=== PATIENT | female | born 1945 | race Caucasian/White ===

== ENCOUNTER 2017-08-02 10:20 | Observation (INO) | payer OTHER, MEDICAID ==
[~2017-08-02] VITALS: Ht 157.5 cm; Wt 123.6 kg
[~2017-08-02 10:20] MED LIST: ACET325T40 PO; BCL80INH INH; RTATR IH
[2017-08-02] MEDS ORDERED: ACETAMINOPHEN 325 MG TAB PO ONE (11:00)
--- NOTE | 2017-08-02 11:00 | ERD ---
ER Documentation Chief Complaint Chief Complaint back and hip pain due to mechanical fall HPI This is a 72-year-old female with a history of COPD, hypertension, arrhythmia status post pacemaker, previous stroke and chronic back pain who is presenting with back and hip pain. The patient reports that she occasionally gets muscle spasms to her back. This happened this morning and she fell, landing on her hip. She was not able to get up on her own, but she was able to call an ambulance. The patient is able to move her hip minimally, but it is quite tender. She reports that her pain is mostly in her back, though. She does get muscle spasms and back pain every day, but it has not been this bad in a long time. She traditionally ambulates at home with a walker. She does not endorse any other injury. She did not fall on an outstretched hand. She has no trauma to the upper extremities. She did not hit her head. She has no head or neck pain. She did not lose consciousness. The patient has no weakness numbness or tingling to the face or extremities. Her sensation, strength and pulses are normal distal to the injury. The patient lives at home alone and does not have anyone who can help take care of her. She is a senior citizen on medical assistance. She states that she does not have any money to obtain any prescription medications at this time. She is concerned about going home and falling again, especially because there is not any one home to help her. The patient denies feeling sick recently. The patient denies fever or chills. The patient has had no headache or vision changes. The patient does not endorse neck or back pain. The patient denies lightheadedness or dizziness. The patient has had no chest pain or shortness of breath or trouble breathing. The patient denies nausea or vomiting. The patient denies abdominal pain or changes to bowel movements or urination. The patient has had no focal deficits. The patient has had no weakness or numbness or tingling to the face or extremities. ROS All systems reviewed and are negative except as per history of present illness. Medications Home Meds Active Scripts Acetaminophen (MAPAP) 325 Mg Tab, 650 MG PO Q6H Y for PAIN LEVEL 1-3 OR FEVER, # 1 TAB Prov:ARTI SIMON MD 08/30/15 Reported Medications Ipratropium Lincoln* (Atrovent*) 2.5 Ml Nebu, 2.5 ML IH Q6 Y for SHORTNESS OF BREATH 12/09/13 Beclomethasone Dip (Qvar 80) 1 Puff Inha, 2 PUFF INH BID, INH RINSE MOUTH AFTER EACH USE 12/09/13 Allergies Allergies: Coded Allergies: hydromorphone HCl (Verified Allergy, Intermediate, SEIZURE, 08/02/17) Penicillins (Verified Allergy, Mild, 08/02/17) acetaminophen (Verified Allergy, Mild, 08/02/17) albuterol (Verified Allergy, Mild, 08/02/17) aspirin (Verified Allergy, Mild, 08/02/17) atorvastatin (Verified Allergy, Mild, 08/02/17) caffeine (Verified Allergy, Mild, 08/02/17) ciprofloxacin (Verified Allergy, Mild, 08/02/17) clopidogrel (Verified Allergy, Mild, 08/02/17) codeine (Verified Allergy, Mild, 08/02/17) prednisone (Verified Allergy, Mild, 08/02/17) Uncoded Allergies: STATINS (Allergy, Intermediate, 12/09/13) SULFA (Allergy, Intermediate, 12/09/13) FLU SHOT (Allergy, Mild, 09/01/09) PNEUMO VACCINE (Allergy, Mild, 09/01/09) PMhx/Soc History of Surgery: Yes (C section, hysterectomy,pacemaker) Anesthesia Reaction: No Hx Neurological Disorder: Yes (stroke) Hx Respiratory Disorders: Yes (asthma) Hx Cardiac Disorders: Yes (HTN, pacemaker) Hx Psychiatric Problems: No Hx Miscellaneous Medical Probl: Yes (Metabolic syndrome, Asthma/COPD) Hx Alcohol Use: No Hx Substance Use: No Hx Tobacco Use: No Smoking Status: Never smoker FmHx Family History: diabetes Physical Exam Vitals Vital Signs Date Time Temp Pulse Resp B/P Pulse Ox O2 Delivery O2 Flow Rate FiO2 08/02/17 13:18 77 20 175/98 99 Room Air 08/02/17 10:25 97.5 83 18 157/82 98 Physical Exam Const: No apparent distress, well-developed, well-nourished Head: Normocephalic, Atraumatic Eyes: Normal Conjunctiva. Extraocular movements intact. Pupils equal, round and reactive to light ENT: Normal External Ears, Nose and Mouth. Neck: Full range of motion. No meningismus. Resp: Clear to auscultation bilaterally, No wheezes, rales or rhonchi Cardio: Regular rate and rhythm. No murmurs, rubs or gallops Abd: Morbidly obese with a BMI of 50. Soft, non tender. Normal bowel sounds Skin: No petechiae or rashes Back: Significant lumbar midline tenderness without step-offs or deformities. No CVA tenderness Ext: No cyanosis. Nonpitting bilateral lower extremity edema. No shortening of either leg. No rotation of either leg. Positive straight leg raise of the right leg to 30. Neur: Awake and alert, oriented 4. Cranial nerves intact. No facial droop. Normal strength, sensation and coordination. Psych: Normal Mood and Affect Results 24 hrs Current Medications Medications (Trade) Dose Ordered Sig/Amalia Route PRN Reason Start Time Stop Time Status Last Admin Dose Admin Acetaminophen (Tylenol Tab) 650 mg ONCE ONCE PO 08/02/17 11:00 08/02/17 11:01 DC 08/02/17 10:53 Ketorolac Tromethamine (Toradol) 15 mg ONCE STAT IM 08/02/17 11:26 08/02/17 11:29 DC 08/02/17 11:41 Diazepam (Valium) 5 mg ONCE ONCE IM 08/02/17 15:00 08/02/17 15:01 DC Procedures/MDM MDM The patient's presentation warrants further investigation. The patient presents with exacerbation of her back pain. I will evaluate for any signs of fracture or dislocation. I will treat the patient's pain. If there are no fractures or dislocations, we will check the patient's ambulatory status. IMAGING XR Lumbar FINDINGS: Spondylosis/degenerative enthesopathy is present throughout the imaged thoracic spine and the lumbar spine. Grade 1 spondylolisthesis of L4 on L5 is present of approximately 3 mm. No evidence for spondylolysis is suggested. Consider follow up with oblique views or additional imaging to further evaluate. Preservation of vertebral body heights are noted. The intervertebral discs demonstrate severe disc space height loss and vacuum phenomenon at the L4-5 and L5-S1 levels. Vascular calcifications are present of the aorta and the bilateral common iliac arteries. The posterior elements are intact and well aligned. The imaged portions the bilateral sacroiliac joints and the hips are normal. Mild osteitis pubis is present. IMPRESSION: 1. Degenerative spondylosis/enthesopathy of the imaged thoracic and lumbar spine. 2. Severe disc space height loss and vacuum phenomenon at the L4-5 and L5-S1 levels. 3. Grade 1 3 mm spondylolisthesis of L4 and L5 without evidence for spondylolysis 4. Mild atherosclerotic vascular disease Electronically viewed and signed by .Clau Chi MD, MD on 08/02/2017 12: 29 XR Hip FINDINGS: No acute fractures or dislocations are present. Normal mineralization and joint spaces are present. The imaged soft tissues are normal. The imaged portions of the bilateral sacroiliac joints and the pelvis are normal. IMPRESSION: No acute fractures or dislocations. Electronically viewed and signed by .Clau Chi MD, MD on 08/02/2017 12: 24 XR Pelvis FINDINGS: Bone density appears slightly decreased. There is no visible fracture. The hip joints are intact. The right femoral head and neck contour is smooth and contiguous. Degenerative changes of the sacroiliac joints and lower lumbar spine are observed. Soft tissues are unremarkable. IMPRESSION: No visible fracture. Electronically viewed and signed by .Arline Gonzalez MD, MD on 08/02/2017 12:26 TREATMENT/DISPOSITION We did treat the patient's pain with Tylenol and IM Toradol. When she was not moving, this did improve the pain significantly. We attempted to ambulate the patient, and her pain recurred and was significant. She had extreme difficulty walking with a walker, which is her baseline, and it was clear that the risk of falling was very high. The patient lives alone without any assistance at home. She also reports not being able to fill the prescriptions that she does not have the funding nor the capacity to get to the pharmacy. I am concerned of discharging the patient at this time, as I feel that it could be dangerous. The patient would benefit from evaluation in the hospital by physical therapy and Occupational Therapy. If her pain does not improve or she is not able to ambulate, she may benefit from a rehab facility over going home. At this time, I feel that the patient requires admission for further evaluation and management. The patient will be admitted to panel in accordance with the patient's insurance. The patient was accepted by Dr. Espino at 3 PM on August 02, 2017. The patient's blood pressure was elevated at greater than 120/80 while in the emergency department. The patient was otherwise stable with no evidence of hypertensive urgency or emergency or end organ damage. The patient does not require admission for blood pressure control. I have discussed with the patient the risks of hypertension. I have advised the patient to follow up with the primary care physician for outpatient monitoring and treatment for hypertension in 2-3 days. I have instructed the patient to return to the ER for any new or worsening symptoms including chest pain, shortness of breath, headache, blurred vision, confusion, nausea, vomiting or LOC. Disclaimer: Inadvertent spelling and grammatical errors are likely due to EHR/ dictation software use and do not reflect on the overall quality of patient care. Note that the electronic time recorded on this note does not necessarily reflect the actual time of the patient encounter. Departure Diagnosis: Primary Impression: Low back pain with sciatica Chronicity: unspecified Back pain laterality: midline Sciatica laterality: sciatica of right side Qualified Code: M54.41 - Midline low back pain with right-sided sciatica, unspecified chronicity Additional Impressions: Hip pain Laterality: right Qualified Code: M25.551 - Pain of right hip joint Decreased ambulation status Hypertension Hypertension type: unspecified Qualified Code: I10 - Hypertension, unspecified type Condition: PRABHAKAR Rajput MD Aug 02, 2017 11:00
[2017-08-02] MEDS ORDERED: KETOROLAC 15 MG INJ IM STA (11:26)
--- NOTE | 2017-08-02 12:25 | RADRPT ---
PROCEDURE: Right hip series CLINICAL INDICATION: Pain status post fall TECHNIQUE: AP and frog-leg lateral right hip COMPARISON: None available other than pelvis on 08/02/2017 FINDINGS: No acute fractures or dislocations are present. Normal mineralization and joint spaces are present. The imaged soft tissues are normal. The imaged portions of the bilateral sacroiliac joints and the p andrés are normal. IMPRESSION: 1. No acute fractures or dislocations. RPTAT: HDC .Clau Chi MD, Date Time Electronically viewed and signed by .Clau Chi MD, MD on 08/02/2017 12:24 .C/
--- NOTE | 2017-08-02 12:26 | RADRPT ---
PROCEDURE: XR Pelvis. CLINICAL INDICATION: Pain status post fall. TECHNIQUE: Pelvic x-ray, single AP view. COMPARISON: No prior studies are available for comparison. FINDINGS: Bone density appears slightly decreased. There is no visible fracture. The hip joints are intact. Th e right femoral head and neck contour is smooth and contiguous. Degenerative changes of the sacroili ac joints and lower lumbar spine are observed. Soft tissues are unremarkable. IMPRESSION: No visible fracture. RPTAT: HLST .Arline Gonzalez MD, Date Time Electronically viewed and signed by .Arline Gonzalez MD, on 08/02/2017 12:26 .T/
--- NOTE | 2017-08-02 12:29 | RADRPT ---
PROCEDURE: Lumbar spine series CLINICAL INDICATION: Back and hip pain TECHNIQUE: AP lateral and cone lateral views COMPARISON: Lumbar spine series 11/19/2013 FINDINGS: Spondylosis/degenerative enthesopathy is present throughout the imaged thoracic spine and the lumbar spine. Grade 1 spondylolisthesis of L4 on L5 is present of approximately 3 mm. No evidence for spon dylolysis is suggested. Consider follow up with oblique views or additional imaging to further evalu ate. Preservation of vertebral body heights are noted. The intervertebral discs demonstrate severe d isc space height loss and vacuum phenomenon at the L4-5 and L5-S1 levels. Vascular calcifications ar e present of the aorta and the bilateral common iliac arteries. The posterior elements are intact an d well aligned. The imaged portions the bilateral sacroiliac joints and the hips are normal. Mild os teitis pubis is present. IMPRESSION: 1. Degenerative spondylosis/enthesopathy of the imaged thoracic and lumbar spine. 2. Severe disc space height loss and vacuum phenomenon at the L4-5 and L5-S1 levels. 3. Grade 1 3 mm spondylolisthesis of L4 and L5 without evidence for spondylolysis 4. Mild atherosclerotic vascular disease RPTAT: HDC .Clau Chi MD, Date Time Electronically viewed and signed by .Clau Chi MD, on 08/02/2017 12:29 .C/
[2017-08-02] MEDS ORDERED: DIAZEPAM 5 MG/ML SYG IM ONE (15:00)
[2017-08-02] MEDS ORDERED: ACETAMINOPHEN 325 MG TAB PO PRN ×2 (15:30→20:00)
[2017-08-02] MEDS ORDERED: ONDANSETRON 4 MG INJ IV PRN (15:30)
[2017-08-02] MEDS ORDERED: DOCUSATE SODIUM 100 MG CAP PO PRN (16:00)
[2017-08-02] MEDS ORDERED: BISACODYL 10 MG SUPP PR PRN (16:00)
[2017-08-02] MEDS ORDERED: MAGNESIUM HYDROXIDE 30ML CUP PO PRN (16:00)
[2017-08-02] MEDS ORDERED: NACL 0.9% 3 ML SYG IV SCH (16:00)
--- NOTE | 2017-08-02 17:17 | HP ---
Date/Time of Note Date/Time of Note DATE: 08/02/17 TIME: 17:07 Assessment/Plan VTE Prophylaxis VTE Prophylaxis Intervention: SCD's Assessment/Plan Chief Complaint/Hosp Course Assessment and plan 1. Intractable back pain. Continue with analgesics. Will get pain management physician to follow. Will also get physical therapy considering patient's difficulty with ambulation. 2. Deconditioning. Will get physical therapist to follow. 3. Diabetes. Follow-up on A1c. Continue insulin regimen for now. 4. Hypertension. Will start on antihypertensive medications and adjust as needed 5. Obesity. Weight reduction was advised. 6. History of dyslipidemia. Follow-up in fasting lipid panel. 7.hx of cva. will place on antiplatelet therapy Admission process time is greater than 40 minutes Discussed plan of care with Dr. Espino Problems: HPI/ROS Admit Date/Time Admit Date/Time Hx of Present Illness This is a 72-year-old female with history of CVA, deconditioning, hypertension, this lipidemia, diabetes, morbid obesity, ADALBERTO, asthma, spinal stenosis, reported possible pelvic tumor, pacemaker, sick sinus syndrome, valvular heart disease with moderate aortic stenosis, left carotid artery stenosis status post reported endarterectomy who was brought to [facility] due to reports of recent fall. Patient reported that about 6 days prior to this admission should be hearing of a pack a water to her apartment. After then she started explains back spasms. She reportedly also has a history of sciatica. She reports that her spasms got worse and this morning when she woke up she tries to ambulate her spasms got worse that she fell on her right hip. She denies any loss of consciousness or hitting her head at that time. She reports merely landing on her right hip. She reports that after that she was unable to relate. She was brought by ambulance to [facility] due to the aformentiond issues. Upon further examination she did have further imaging of her lumbar spine which showed degenerative spondylosis and severe disc space height phenomenon at L4-L5 and L5-S1. There is also seen grade 1-3 mm spondylolisthesis of L4 and L5 without evidence of spondylosis. Hip x-ray was negative for any acute fractures and pelvic x-ray was also negative for any visible fractures. CBC and BMP are still pending at this time. On arrival patient was noted to be hypertensive with blood pressure as high as 175/90. Denies any chest pain shortness of breath. No reports of sick contacts of nausea vomiting. She does have +5 strength in bilateral upper and lower extremities but does have pain with ambulation reportedly. Pulses palpable +2 although she is noted with bilateral lower extremity edema. No other motor or neurological deficits seen at this time. We will evaluate her for the aformentiond issues. ROS 12 point review of systems obtained and entirely negative except that mentioned in the history of present illness PMH/Family/Social Past Medical History CVA, deconditioning, hypertension, this lipidemia, diabetes, morbid obesity, ADALBERTO, asthma, spinal stenosis, reported possible pelvic tumor, pacemaker, sick sinus syndrome, valvular heart disease with moderate aortic stenosis, carotid artery stenosis status post reported endarterectomy, Family History Significant Family History: no pertinent family hx Social History Alcohol Use: none Smoking Status: Never smoker Drug Use: none Exam/Review of Systems Vital Signs Vitals Vital Signs Date Time Temp Pulse Resp B/P Pulse Ox O2 Delivery O2 Flow Rate FiO2 08/02/17 13:18 77 20 175/98 99 Room Air 08/02/17 10:25 97.5 Exam Constitutional: alert, oriented, other (Obese) Psych: nl mood/affect Head: atraumatic, normocephalic Eyes: nl conjunctiva Neck: non-tender, supple Respiratory: clear to auscultation, normal air movement Cardiovascular: other (Pacemaker in place. Regular rate) Gastrointestinal: nl liver, spleen, soft Musculoskeletal: nl extremities to inspection Extremities: normal pulses Neurological: PLUMBER APPRENTICE II-XII intact, nl mental status, nl speech Medications Medications Current Medications Miscellaneous Information 2 puff BID INH ; Start 08/02/17 at 21:00; Status UNV Docusate Sodium (Colace) 100 mg Q12H PRN PO CONSTIPATION; Start 08/02/17 at 16 :00 Magnesium Hydroxide (Milk Of Mag) 30 ml DAILY PRN PO CONSTIPATION; Start 08/02 at 16:00 Bisacodyl (Dulcolax Supp) 10 mg DAILY PRN VT CONSTIPATION; Start 08/02/17 at 16:00 Pantoprazole (Protonix Tab) 40 mg DAILY@06 PO ; Start 08/03/17 at 06:00 ROSALBA MONTOYA Aug 02, 2017 17:17
[2017-08-02 17:20] VITALS: TEMP 97.5
[2017-08-02] MEDS ORDERED: GLUCAGON 1 MG INJ IM PRN (17:30)
[2017-08-02] MEDS ORDERED: hydrALAzine 20 MG INJ IV PRN (17:30)
[2017-08-02] MEDS ORDERED: DEXTROSE 50% 50 ML SYRINGE IV PRN ×2 (17:30)
[2017-08-02] MEDS ORDERED: GLUCOSE GEL 15 GRAM TUBE PO PRN ×2 (17:30)
[2017-08-02] MEDS ORDERED: GLUCOSE GEL 15 GRAM TUBE BUCCAL PRN (17:30)
[2017-08-02 17:41] LABS: BASOPHIL # 0.1 10^3/ul (0.0-0.1); BASOPHILS % 0.5 % (0.0-2.0); EOSINOPHILS # 0.1 10^3/ul (0.0-0.5); EOSINOPHILS % 1.3 % (0.0-7.0); HEMATOCRIT 40.5 % (37.0-47.0); HEMOGLOBIN 13.4 g/dl (12.0-16.0); LYMPHOCYTES # 2.3 10^3/ul (0.8-2.9); LYMPHOCYTES % 24.7 % (15.0-51.0); MEAN CORPUSCULAR HGB CONC 33.1 g/dl (32.0-37.0); MEAN CORPUSCULAR VOLUME 84.7 fl (82.0-101.0); MEAN PLATELET VOLUME 10.3 fl (7.4-10.4); MONOCYTE # 0.4 10^3/ul (0.3-0.9); MONOCYTES % 4.6 % (0.0-11.0); NEUTROPHIL # 6.3 10^3/ul (1.6-7.5); NEUTROPHILS % 68.5 % (39.0-77.0); PLATELET COUNT 222 10^3/UL (140-415); RED BLOOD COUNT 4.78 10^6/ul (4.20-5.40); RED CELL DISTRIBUTION WIDTH 13.1 % (11.5-14.5); WHITE BLOOD COUNT 9.3 10^3/ul (4.8-10.8)
[2017-08-02 17:46] LABS: ALBUMIN 3.9 g/dl (3.3-4.9); ALBUMIN/GLOBULIN RATIO 1.18; BILIRUBIN,INDIRECT 0.5 mg/dl (0-1.1); BILIRUBIN,TOTAL 0.5 mg/dl (0.2-1.3); CREATININE 0.59 mg/dl (0.44-1.00); POTASSIUM 4.2 mmol/L (3.5-5.1); TOTAL PROTEIN 7.2 g/dl (6.1-8.1)
[2017-08-02 18:13] VITALS: BP 139/71; RESP 18
[2017-08-02] MEDS ORDERED: ASPI81TA3 PO (18:30)
[2017-08-02 18:33] VITALS: Ht 157.5 cm; Wt 123.6 kg
[2017-08-02 20:00] VITALS: BP 196/93; PULSE 76; RESP 19
[2017-08-02] MEDS: KETOROLAC 30 MG INJ IV PRN (20:37)
[2017-08-02] MEDS: INSULIN ASPART [NOVOLOG] 3 ML PEN SC SCH (21:00)
[2017-08-02] MEDS: AMLODIPINE 5 MG TAB PO SCH (21:00)
[2017-08-02 21:50] VITALS: BP 177/76; PULSE 79
[2017-08-02] MEDS: MOMETASONE 0.24 GM INHALER INH SCH (22:30)
[2017-08-03] MEDS ORDERED: ACCU-CHEK XX SCH (02:00)
[2017-08-03 02:36] VITALS: BP 167/74; RESP 18
[2017-08-03] MEDS: KETOROLAC 30 MG INJ IV PRN ×2 (04:08→11:40)
[2017-08-03 05:50] LABS: ALBUMIN 3.4 g/dl (3.3-4.9); ALBUMIN/GLOBULIN RATIO 1.03; BILIRUBIN,INDIRECT 0.6 mg/dl (0-1.1); BILIRUBIN,TOTAL 0.6 mg/dl (0.2-1.3); CALCIUM 9.2 mg/dl (8.4-10.2); CHOL/HDL RATIO 4.9 RATIO; CREATININE 0.71 mg/dl (0.44-1.00); MAGNESIUM 1.6 mg/dl (1.7-2.5); PHOSPHORUS 3.2 mg/dl (2.5-4.9); POTASSIUM 4.3 mmol/L (3.5-5.1); TOTAL PROTEIN 6.7 g/dl (6.1-8.1)
[2017-08-03 05:59] LABS: T3 UPTAKE 35.3 % (23.5-40.5)
[2017-08-03] MEDS ORDERED: PANTOPRAZOLE (EC) 40 MG TAB PO SCH (06:00)
[2017-08-03 07:48] LABS: ADD UMIC NO; UR ASCORBIC ACID NEGATIVE (NEGATIVE); UR BILIRUBIN (Dip) NEGATIVE (NEGATIVE); UR BLOOD (Dip) NEGATIVE (NEGATIVE); UR CLARITY CLEAR (CLEAR); UR COLOR STRAW (YELLOW); UR GLUCOSE (Dip) 1+ mg/dL (NEGATIVE); UR KETONES (Dip) NEGATIVE (NEGATIVE); UR LEUKOCYTE ESTERASE (Dip) NEGATIVE Leu/ul (NEGATIVE); UR NITRITE (Dip) NEGATIVE (NEGATIVE); UR SPECIFIC GRAVITY (Dip) 1.012 (1.003-1.030); UR TOTAL PROTEIN (Dip) NEGATIVE (NEGATIVE); UR UROBILINOGEN (Dip) NEGATIVE (NEGATIVE)
[2017-08-03] MEDS: INSULIN ASPART [NOVOLOG] 3 ML PEN SC SCH ×4 (07:50→11:40)
[2017-08-03 08:38] VITALS: BP 142/78; RESP 18
[2017-08-03] MEDS: AMLODIPINE 5 MG TAB PO SCH (09:00)
[2017-08-03] MEDS: MOMETASONE 0.24 GM INHALER INH SCH (09:00)
[2017-08-03] MEDS ORDERED: INSULIN ASPART [NOVOLOG] 3 ML PEN SC SCH (11:40)
[2017-08-03] MEDS ORDERED: FENOFIBRATE 48 MG TAB PO SCH (12:00)
[2017-08-03] MEDS ORDERED: AMLO-145 PO (12:20)
[2017-08-03] MEDS ORDERED: FENO48TA4 PO (12:20)
[2017-08-03] MEDS ORDERED: PANT40TA4 PO (12:20)
[2017-08-03] MEDS ORDERED: METF500T4 PO (12:20)
[2017-08-03] MEDS ORDERED: METH500T PO (12:20)
[2017-08-03] MEDS ORDERED: SITA25TA3 PO (12:20)
[2017-08-03] MEDS ORDERED: OMEG-135 PO (12:20)
--- NOTE | 2017-08-03 12:24 | PDOCDIS ---
Discharge Instructions DIAGNOSIS Discharge Diagnosis 1. Intractable back pain. 2. Deconditioning. 3. Diabetes. 4. Hypertension. 5. Obesity. 6. History of dyslipidemia. 7.hx of cva. CONDITION Patient Condition: Stable HOME CARE INSTRUCTIONS: Diet Instructions: Low Fat /Cholesterol (1800 YA)Special Diet: 1800 CALYour diet recommendation is: CARBOHYDRATE CONTROLLED ACTIVITY: Activity Restrictions: Slowly Increase Activity Rest between Activity Avoid heavy lifting Do not Drive Avoid Heavy Housework Bathing Restrictions: Shower FOLLOW UP/APPOINTMENTS Follow-up Plan 1. Follow up with your primary care provider in one week 2. Follow up with your consumer educator in one week ROSALBA MONTOYA Aug 03, 2017 12:24
[2017-08-03] MEDS ORDERED: INSULIN GLARGINE [LANtus] 3 ML PEN SC SCH (20:00)
== END 2017-08-03 15:04 | disposition home health service (06) ==
LOC: E/R 10:20 → MS1 15:04
PROVIDERS: ADMIT Hospitalist; ATTEND Hospitalist
DX: M54.41 Lumbago with sciatica, right side (principal); M25.551 Pain in right hip; I10 Essential (primary) hypertension; E11.9 Type 2 diabetes mellitus without complications; J44.9 Chronic obstructive pulmonary disease, unspecified; J45.909 Unspecified asthma, uncomplicated; E78.5 Hyperlipidemia, unspecified; G47.33 Obstructive sleep apnea (adult) (pediatric); E66.01 Morbid (severe) obesity due to excess calories; Z68.42 Body mass index [BMI] 45.0-49.9, adult; Z95.0 Presence of cardiac pacemaker; Z86.73 Personal history of transient ischemic attack (TIA), and cerebral infarction without residual deficits; Z88.6 Allergy status to analgesic agent; Z88.1 Allergy status to other antibiotic agents; Z88.5 Allergy status to narcotic agent; Z88.0 Allergy status to penicillin; Z88.2 Allergy status to sulfonamides; Z88.8 Allergy status to other drugs, medicaments and biological substances; W19.XXXA Unspecified fall, initial encounter; Y93.9 Activity, unspecified; Y99.9 Unspecified external cause status; Y92.9 Unspecified place or not applicable
CPT/HCPCS: 72100; 72170; 73510; 80053; 80061; 81003; 82962; 83036; 83735; 84100; 84436; 84443; 84479; 85025; 96372; 97162; 99285; G0378; J1885; J3360; J0360; J1815

== ENCOUNTER 2019-02-24 17:00 | Emergency (ER) | payer OTHER, MEDICAID ==
[~2019-02-24] VITALS: Ht 157.5 cm; Wt 120.0 kg
[~2019-02-24 17:00] MED LIST changes: +AMLO-145 PO; +ASPI-903 PO; +FENO48TA4 PO; +METF500T24 PO; +METH500T PO; +OMEG-135 PO; +PANT40TA4 PO; +SITA25TA3 PO
[2019-02-24 17:09] VITALS: Ht 157.5 cm; Wt 120.0 kg
[2019-02-24] MEDS ORDERED: LIDOCAINE 1% (MDV) 20 ML INJ SC ONE (17:30)
[2019-02-24] MEDS ORDERED: DIPHTH/TET/ACEL PERTUSS (ADULT) 0.5 ML VIAL IM* ONE (17:30)
--- NOTE | 2019-02-24 18:45 | ERD ---
ER Documentation Chief Complaint Chief Complaint r foot injury after a mirror fell on it HPI History of Present Illness: 71-year-old female who reports a past medical history of diabetes, hypertension, TIA coming in today with complaint of right foot injury secondary to the mirror falling on it within 1 to 2 hours prior to arrival. Patient reports that laceration is present. Patient denies any other associated symptoms At home pharmacological/nonpharmacological treatment for symptoms: Denies Denies social concerns; Denies recent foreign travel ROS All systems reviewed and are negative except as per history of present illness. Medications Home Meds Active Scripts Clindamycin Hcl* (Clindamycin Hcl*) 300 Mg Capsule, 300 MG PO TID for laceration infection preventio for 7 Days, CAP Prov:CUAUHTEMOC KAMARA NP 02/24/19 [place]-3 Fatty Acids/Fish Oil (Fish Oil 1,000 mg Capsule) 1 Each Capsule, 1 EACH PO DAILY, #40 CAP Prov:ROSALBA MONTOYA NP 08/03/17 Methocarbamol* (Robaxin*) 500 Mg Tab, 500 MG PO Q6, #40 TAB Prov:ROSALBA MONTOYA NP 08/03/17 Sitagliptin* (Januvia*) 25 Mg Tablet, 25 MG PO DAILY, #30 TAB Prov:ROSALBA MONTOYA NP 08/03/17 Metformin Hcl* (Metformin Hcl*) 500 Mg Tablet, 500 MG PO WITH BREAKFAST DINNE, #60 TAB Prov:ROSALBA MONTOYA NP 08/03/17 Pantoprazole* (Pantoprazole*) 40 Mg Tablet.dr, 40 MG PO DAILY@06, #30 Prov:ROSALBA MONTOYA NP 08/03/17 Fenofibrate Nanocrystallized* (Fenofibrate*) 48 Mg Tablet, 48 MG PO DAILY, #30 TAB Prov:ROSALBA MONTOYA NP 08/03/17 Amlodipine Besylate* (Amlodipine Besylate*) 5 Mg Tablet, 5 MG PO BID, #60 TAB Prov:ROSALBA MONTOYA NP 08/03/17 Acetaminophen (MAPAP) 325 Mg Tab, 650 MG PO Q6H PRN for PAIN LEVEL 1-3 OR FEVER, #1 TAB Prov:ARTI SIMON MD 08/30/15 Reported Medications Aspirin* (Aspirin* Chew) 81 Mg Tab.chew, 81 MG PO DAILY, TAB.CHEW 08/02/17 Ipratropium [place]* (Atrovent*) 2.5 Ml Nebu, 2.5 ML IH Q6 PRN for SHORTNESS OF BREATH 12/09/13 Beclomethasone Dip (Qvar 80) 1 Puff Inha, 2 PUFF INH BID, INH RINSE MOUTH AFTER EACH USE 12/09/13 Allergies Allergies: Coded Allergies: hydromorphone HCl (Verified Allergy, Intermediate, SEIZURE, 08/02/17) Penicillins (Verified Allergy, Mild, 08/02/17) acetaminophen (Verified Allergy, Mild, 08/02/17) albuterol (Verified Allergy, Mild, 08/02/17) aspirin (Verified Allergy, Mild, 08/02/17) atorvastatin (Verified Allergy, Mild, 08/02/17) caffeine (Verified Allergy, Mild, 08/02/17) ciprofloxacin (Verified Allergy, Mild, 08/02/17) clopidogrel (Verified Allergy, Mild, 08/02/17) codeine (Verified Allergy, Mild, 08/02/17) prednisone (Verified Allergy, Mild, 08/02/17) Uncoded Allergies: STATINS (Allergy, Intermediate, 12/09/13) SULFA (Allergy, Intermediate, 12/09/13) FLU SHOT (Allergy, Mild, 09/01/09) PNEUMO VACCINE (Allergy, Mild, 09/01/09) PMhx/Soc History of Surgery: Yes Anesthesia Reaction: No Hx Neurological Disorder: No Hx Respiratory Disorders: Yes Hx Cardiac Disorders: Yes Hx Psychiatric Problems: No Hx Miscellaneous Medical Probl: Yes (See EMR for detail. ) Hx Alcohol Use: No Hx Substance Use: No Hx Tobacco Use: No Smoking Status: Never smoker FmHx Family History: coronary disease; No diabetes Physical Exam Vitals Vital Signs Date Temp Pulse Resp B/P (MAP) Pulse Ox O2 O2 Flow FiO2 Time Delivery Rate 02/24/19 98.0 82 16 154/72 98 Room Air 20:50 (99) 02/24/19 98.3 90 16 160/76 98 17:09 (104) Physical Exam Const: No acute distress, afebrile Head: Atraumatic Eyes: Normal Conjunctiva ENT: Normal External Ears, Nose and Mouth. Neck: Full range of motion. No meningismus. Resp: Clear to auscultation bilaterally Cardio: Regular rate and rhythm, no murmurs Abd: Soft, non tender, non distended. No guarding, no masses, no rigidity Skin: No petechiae or rashes; 2 laceration noted to right foot (1 laceration noted to the great toe, second laceration noted to dorsal aspect of foot), tenderness to palpation, bleeding controlled Back: No midline or flank tenderness Ext: No cyanosis, or edema Neur: Awake and alert x3, speaking in clear sentences, no focal deficits or facial asymmetry Psych: Normal Mood and Affect Results 24 hrs Current Medications Medications Dose Sig/Amalia Start Time Status Last (Trade) Ordered Route PRN Stop Time Admin Dose Reason Admin Diphtheria/ 0.5 ml ONCE ONCE 02/24/19 DC 02/24/19 Tetanus/Acell IM* 17:30 17:40 Pertussis 02/24/19 17:31 (Adacel) Lidocaine 20 ml ONCE ONCE 02/24/19 DC (Xylocaine SC 17:30 1% (Mdv) 20 02/24/19 17:31 ml) Procedures/MDM ED course includes a thorough examination and history. ED course includes laceration repair Medications: Tdap Imaging: Right foot x-ray Labs: Low suspicion for life-threatening medical emergency. Low suspicion for infectious process that requires hospitalization Otherwise healthy patient presenting with constellation of symptoms likely r epresenting history of diabetes, foot laceration, foot injury as characterized by history, physical exam findings, imaging findings. X-ray results showing: IMPRESSION: 1. No visible acute traumatic abnormality of the right foot. 2. Plantar calcaneal spur. RPTAT:AAJJ Physician Morena Date Time Electronically viewed and signed by Physician Morena on 02/24/2019 19:35 #1 Laceration Repair by me: Anesthesia: 1% lidocaine locally Location: Right foot; great toe Tendon/Joint/Nerves: No injury Foreign body: None detected after copious irrigation and exploration; 500Ml Technique: Simple Interrupted Sutures using Prolene, 5-0, 4 sutures Complexity: No subcutaneous sutures/mucosal repair/edge excision Post Closure Length: 3 cm #2 Laceration Repair by me: Anesthesia: 1% lidocaine locally Location: Right foot; in between great toe and second toe and extending to dorsal aspect of foot to third toe Tendon/Joint/Nerves: No injury Foreign body: None detected after copious irrigation and exploration; 500Ml Technique: Simple Interrupted Sutures using Prolene, 5-0, 5 sutures Complexity: No subcutaneous sutures/mucosal repair/edge excision Post Closure Length: 3.5 cm Patient's bleeding was easily controlled in the department and there is no indication of anemia. No evidence of compartment syndrome, neurologic injury, vascular injury, open joint, tendon laceration, or foreign body. Patient is appropriate for outpatient follow up. 48 hour wound check. Scar minimization instructions given. Patient reassessment: Patient hemodynamically stable. No respiratory distress, otherwise relatively well appearing and nontoxic. Disposition given. Patient educated on diagnoses, prescriptions, follow-up care, return precautions. Strict return precautions given for worsening condition; questions answered discharge. Disposition for discharge with followup in 2 days with PCP/clinic. Departure Diagnosis: Primary Impression: Injury of foot, right Encounter type: initial encounter Qualified Codes: S99.921A - Unspecified injury of right foot, initial encounter Additional Impressions: History of diabetes mellitus Laceration of right foot Encounter type: initial encounter Qualified Codes: S91.311A - Laceration without foreign body, right foot, initial encounter Laceration of right great toe Encounter type: initial encounter Damage to nail status: without damage Foreign body presence: without foreign body Qualified Codes: S91.111A - Laceration without foreign body of right great toe without damage to nail, initial encounter Condition: Stable CUAUHTEMOC KAMARA NP Feb 24, 2019 18:45
[2019-02-24] MEDS ORDERED: CLIN300C10 PO (20:15)
[2019-02-24 20:50] VITALS: BP 154/72; PULSE 82; RESP 16
== END 2019-02-24 20:50 | disposition home or self-care (01) ==
LOC: FTE 17:00
DX: S91.111A Laceration without foreign body of right great toe without damage to nail, initial encounter (principal); S91.114A Laceration without foreign body of right lesser toe(s) without damage to nail, initial encounter; I10 Essential (primary) hypertension; E11.9 Type 2 diabetes mellitus without complications; W20.8XXA Other cause of strike by thrown, projected or falling object, initial encounter; Y92.9 Unspecified place or not applicable; Z23 Encounter for immunization; Z79.82 Long term (current) use of aspirin; Z79.84 Long term (current) use of oral hypoglycemic drugs
CPT/HCPCS: 73630; 90471; 90715

== ENCOUNTER 2019-02-27 11:54 | Emergency (ER) | payer OTHER ==
[~2019-02-27] VITALS: Ht 157.5 cm; Wt 120.5 kg
[~2019-02-27 11:54] MED LIST changes: +CLIN300C10 PO
[2019-02-27 12:06] VITALS: BP 175/88; PULSE 82; RESP 18; Ht 157.5 cm; Wt 120.5 kg
--- NOTE | 2019-02-27 14:07 | ERD ---
ER Documentation Chief Complaint Chief Complaint wound check & dressing change lac repair wednesday HPI 74-year-old female presenting for wound check of the right foot. Patient had glassful on her right foot 2 days ago and had laceration repaired with stitches. She denies any numbness or tingling. Denies other medical problems. NKDA DA. Surgical history denies. Social history denies ROS All systems reviewed and are negative except as per history of present illness. Medications Home Meds Active Scripts Clindamycin Hcl* (Clindamycin Hcl*) 300 Mg Capsule, 300 MG PO TID for laceration infection preventio for 7 Days, CAP Prov:CUAUHTEMOC KAMARA NP 02/24/19 [place]-3 Fatty Acids/Fish Oil (Fish Oil 1,000 mg Capsule) 1 Each Capsule, 1 EACH PO DAILY, #40 CAP Prov:ROSALBA MONTOYA NP 08/03/17 Methocarbamol* (Robaxin*) 500 Mg Tab, 500 MG PO Q6, #40 TAB Prov:ROSALBA MONTOYA NP 08/03/17 Sitagliptin* (Januvia*) 25 Mg Tablet, 25 MG PO DAILY, #30 TAB Prov:ROSALBA MONTOAY NP 08/03/17 Metformin Hcl* (Metformin Hcl*) 500 Mg Tablet, 500 MG PO WITH BREAKFAST DINNE, #60 TAB Prov:ROSALBA MONTOYA NP 08/03/17 Pantoprazole* (Pantoprazole*) 40 Mg Tablet.dr, 40 MG PO DAILY@06, #30 Prov:ROSALBA MONTOYA NP 08/03/17 Fenofibrate Nanocrystallized* (Fenofibrate*) 48 Mg Tablet, 48 MG PO DAILY, #30 TAB Prov:ROSALBA MONTOYA NP 08/03/17 Amlodipine Besylate* (Amlodipine Besylate*) 5 Mg Tablet, 5 MG PO BID, #60 TAB Prov:ROSALBA MONTOYA NP 08/03/17 Acetaminophen (MAPAP) 325 Mg Tab, 650 MG PO Q6H PRN for PAIN LEVEL 1-3 OR FEVER, #1 TAB Prov:ARTI SIMON MD 08/30/15 Reported Medications Aspirin* (Aspirin* Chew) 81 Mg Tab.chew, 81 MG PO DAILY, TAB.CHEW 08/02/17 Ipratropium [place]* (Atrovent*) 2.5 Ml Nebu, 2.5 ML IH Q6 PRN for SHORTNESS OF BREATH 12/09/13 Beclomethasone Dip (Qvar 80) 1 Puff Inha, 2 PUFF INH BID, INH RINSE MOUTH AFTER EACH USE 12/09/13 Allergies Allergies: Coded Allergies: hydromorphone HCl (Verified Allergy, Intermediate, SEIZURE, 02/27/19) Penicillins (Verified Allergy, Mild, 02/27/19) acetaminophen (Verified Allergy, Mild, 02/27/19) albuterol (Verified Allergy, Mild, 02/27/19) aspirin (Verified Allergy, Mild, 02/27/19) atorvastatin (Verified Allergy, Mild, 02/27/19) caffeine (Verified Allergy, Mild, 02/27/19) ciprofloxacin (Verified Allergy, Mild, 02/27/19) clopidogrel (Verified Allergy, Mild, 02/27/19) codeine (Verified Allergy, Mild, 02/27/19) prednisone (Verified Allergy, Mild, 02/27/19) Uncoded Allergies: STATINS (Allergy, Intermediate, 12/09/13) SULFA (Allergy, Intermediate, 12/09/13) FLU SHOT (Allergy, Mild, 09/01/09) PNEUMO VACCINE (Allergy, Mild, 09/01/09) PMhx/Soc History of Surgery: Yes Anesthesia Reaction: No Hx Neurological Disorder: No Hx Respiratory Disorders: Yes Hx Cardiac Disorders: Yes Hx Psychiatric Problems: No Hx Miscellaneous Medical Probl: Yes (See EMR for detail. ) Hx Alcohol Use: No Hx Substance Use: No Hx Tobacco Use: No Smoking Status: Never smoker FmHx Family History: No diabetes, No coronary disease, No other Physical Exam Vitals Vital Signs Date Temp Pulse Resp B/P (MAP) Pulse Ox O2 O2 Flow FiO2 Time Delivery Rate 02/27/19 97.9 82 18 175/88 97 12:06 (117) Physical Exam GENERAL: The patient is well-appearing, well-nourished, in no acute distress CHEST: Clear to auscultation bilaterally. There are no rales, wheezes or rhonchi. HEART: Regular rate and rhythm. No murmurs, clicks, rubs or gallops. EXTREMITIES: Equal pulses bilaterally. There is no peripheral clubbing, cyanosis or edema. No focal swelling or erythema. Full range of motion. Grossly neurovascularly intact. NEUROLOGIC: Alert and oriented. Cranial nerves II through XII intact. Motor strength in all 4 extremities with 5 out of 5 strength. Sensation grossly intact. Normal speech and gait. SKIN: Previous laceration sites noted to the volar aspect of the right foot. Wound healing appropriately with no surrounding erythema or dehiscence. No purulence. Procedures/MDM MDM: 74-year-old female presenting for wound check. Patient's wound appears to be healing appropriately. I have low suspicion for wound infection or dehiscence of the wound. Patient is discharged with strict ER precautions and told to follow-up with primary care within 1 to 2 days for close evaluation. All questions answered at discharge Departure Diagnosis: Primary Impression: Encounter for wound re-check Condition: Stable Patient Instructions: Wound Check, Lac F/U (No Infection) Referrals: [facility] YOU HAVE RECEIVED A MEDICAL SCREENING EXAM AND THE RESULTS INDICATE THAT YOU DO NOT HAVE A CONDITION THAT REQUIRES URGENT TREATMENT IN THE EMERGENCY DEPARTMENT. FURTHER EVALUATION AND TREATMENT OF YOUR CONDITION CAN WAIT UNTIL YOU ARE SEEN IN YOUR DOCTORS OFFICE WITHIN THE NEXT 1-2 DAYS. IT IS YOUR RESPONSIBILITY TO MAKE AN APPOINTMENT FOR FOLOW-UP CARE. IF YOU HAVE A PRIMARY DOCTOR --you should call your primary doctor and schedule an appointment IF YOU DO NOT HAVE A PRIMARY DOCTOR YOU CAN CALL OUR PHYSICIAN REFERRAL HOTLINE AT IF YOU CAN NOT AFFORD TO SEE A PHYSICIAN YOU CAN CHOSE FROM THE FOLLOWING [facility] [address] [facility]. [facility] [address] [facility] [facility] [address] [facility]. [facility] [address] [facility]. [facility] [address] [facility]. [facility]. [address] Additional Instructions: FOLLOW UP WITH YOUR PRIMARY CARE PHYSICIAN TOMORROW.Return to this facility if you are not improving as expected. KELBY MARTINEZ PA-C Feb 27, 2019 14:07
== END 2019-02-27 13:22 | disposition home or self-care (01) ==
LOC: FTE 11:54
DX: Z48.01 Encounter for change or removal of surgical wound dressing (principal); Z79.82 Long term (current) use of aspirin; Z79.84 Long term (current) use of oral hypoglycemic drugs
CPT/HCPCS: 99281